=== PATIENT | male | born 1985 | race Caucasian/White ===

== ENCOUNTER 2016-12-28 13:35 | Emergency (ER) | payer BC, OTHER ==
[2016-12-28 13:57] VITALS: BP 153/88; PULSE 98; RESP 16; TEMP 98.2; O2SAT 96
--- NOTE | 2016-12-28 14:21 | UCPHY ---
H & P Time Seen by Provider: 12/28/16 13:56 Patient Type: New HPI/ROS: This patient presents with a chief complaint of sore throat, cough and hoarseness along with right ear pain malaise and hoarseness. The illness began with hoarseness 4 days ago which progressed to sore throat and the other symptoms. He denies any fever. REVIEW OF SYSTEMS: Constitutional: Malaise and fatigue Eyes: No complaints ENT: Sore throat, hoarseness, nasal congestion and right ear pain Respiratory: Cough, no shortness of breath Cardiac: No chest pain Gastrointestinal: Not addressed Genitourinary: Not addressed Musculoskeletal: No myalgias Skin: No rash, complains of hypesthesias Neurological: No headache Smoking Status: Never smoked Physical Exam: GENERAL: Well-appearing, well-nourished and in no acute distress. HEAD: Atraumatic, normocephalic. EYES: sclera anicteric, conjunctiva are normal. ENT: TMs normal, nares patent, oropharynx clear discrete white patches are noticed on both tonsils and is associated with erythema. Moist mucous membranes. NECK: Normal range of motion, supple without lymphadenopathy or JVD. LUNGS: Breath sounds clear to auscultation bilaterally and equal. No wheezes rales or rhonchi. HEART: Regular rate and rhythm EXTREMITIES: Normal range of motion NEUROLOGICAL: Cranial nerves II through XII grossly intact. Normal speech, normal gait. PSYCH: Normal mood, normal affect. SKIN: Warm, dry, normal turgor, no visible rashes or lesions. Constitutional: Initial Vital Signs Temperature (C) 36.8 C 12/28/16 13:53 Heart Rate 98 12/28/16 13:53 Respiratory Rate 16 12/28/16 13:53 Blood Pressure 153/88 H 12/28/16 13:53 O2 Sat (%) 96 12/28/16 13:53 O2 Delivery Mode Room Air Allergies/Adverse Reactions: No Known Allergies Allergy (Verified 12/28/16 13:56) Home Medications: Medication Instructions Recorded Simvastatin 12/28/16 Zoloft 100mg (*) 12/28/16 Medical Decision Making Differential Diagnosis: I find nothing to suggest that this patient would benefit from antibiotics. I believe feel his symptoms are related to a viral syndrome. - Data Points Laboratory Results: 12/28/16 12/28/16 12/28/16 Unknown 14:00 14:00 Influenza Typ A,B (DFA) NEGATIVE FOR FLU (NEGATIVE) Group A Strep Screen NEGATIVE (NEGATIVE) Group A Strep DNA Pending Departure - Departure Disposition: Home, Routine, Self-Care Clinical Impression: Viral syndrome, Laryngitis Instructions: Viral Syndrome (ED), Laryngitis (ED), Pharyngitis (ED) Additional Instructions: If your symptoms have not improved in 4 or 5 days or if they have not resolved completely in 10 days you should be re-evaluated. Id a fever greater than 101 degrees or shortness of breath would be cause for concern. Keep herself well hydrated but do not force herself to eat. Adult Pain & Fever Control: We recommend Acetaminophen (Tylenol) and Ibuprofen (Motrin, Advil) for pain and fever control. When fever is high or pain severe, both drugs can be used at the same time, but at different intervals. Please note the time differences. Your dose is: Acetaminophen [650]mg every 4 to 6 hours ibuprofen [600]mg every [6] hours with food OR naproxen Sodium (Aleve) [440]mg every 12 hours. Note: do not take Acetaminophen with Hydrocodone (Vicodin, Lortab) or Oxycodone (Percocet). These medications also contain Acetaminophen. No more than 3000 mg of Acetaminophen should be taken in 24 hours (for an adult) . The maximal dose of ibuprofen that it is safe in a 24-hour period is 2400 mg. You may take 400 mg every 4 hours, 600 mg every 6 hours or 800 mg every 8 hours safely. Referrals: GISELLE CIFUENTES [Primary Care Provider] - As per Instructions - PQRS PQRS Measurement: Not applicable
== END 2016-12-28 14:37 | disposition home or self-care (01) ==
LOC: CED 13:35
DX: B34.9 Viral infection, unspecified (principal); J04.0 Acute laryngitis
CPT/HCPCS: 87400-PO; 87880-PO; 99203-PO; G0463-PO